=== PATIENT | female | born 1975 | race Caucasian/White ===

== ENCOUNTER 2018-10-01 09:40 | Emergency (ER) | payer BC ==
[~2018-10-01] VITALS: Ht 157.5 cm; Wt 53.2 kg
[~2018-10-01 09:40] MED LIST: BENTYL 10MG10 MG/CAP; BIRTH CONTROL; CELEXA10 MG; LEVBID0.375 MG
[2018-10-01 09:50] VITALS: TEMP 99.1
[2018-10-01 10:45] LABS: BASO # 0.1 (0.0-0.2); BASO % 0.4 % (0.0-2.0); EOS # 0.1 (0.0-0.7); EOS % 0.4 % (0-4.0); GRAN # 9.8 (1.4-6.5); HEMOGLOBIN 13.6 g/dl (12.5-16.0); LYMPH # 1.7 (1.2-3.4); LYMPH % 13.7 % (20.0-51.0); MEAN CELL VOLUME 86 fl (80.0-100.0); MEAN CORPUSCULAR HEMOGLOBIN 29 pg (27.0-31.0); MEAN CORPUSCULAR HGB CONC 34 g/dl (33.0-37.0); MEAN PLATELET VOLUME 10.5 fl (7.4-10.4); MONO # 0.9 (0.1-0.6); MONO % 7.1 % (1.7-9.3); PLATELET COUNT 357 K/mm3 (130-400); RED BLOOD COUNT 4.64 M/mm3 (4.10-5.30); REDCELL DISTRIBUTION WIDTH-CV 12.2 % (11.5-14.5)
[2018-10-01 10:53] LABS: ALBUMIN 4.5 gm/dL (3.5-5.0); BILIRUBIN,TOTAL 0.6 mg/dL (0.0-1.0); CREATININE, serum 0.77 mg/dL (0.52-1.25); POTASSIUM 4.5 mmol/L (3.4-5.0); TOTAL PROTEIN 7.8 gm/dL (6.4-8.2)
[2018-10-01 11:23] LABS: TSH w REFLEX 2.31 uIU/mL (0.465-4.680)
[2018-10-01 13:48] LABS: COLLECTION METHOD CLEAN CATCH
[2018-10-01 14:05] LABS: MUCOUS Present /lpf; PH 6 (5-8); SQUAMOUS EPITHELIAL None Seen /hpf; URINE APPEARANCE Clear; URINE BACTERIA None Seen /hpf; URINE BILIRUBIN Negative (NEGATIVE); URINE BLOOD Negative (NEGATIVE); URINE COLOR Yellow; URINE GLUCOSE Negative (NEGATIVE); URINE KETONE 2+ (NEGATIVE); URINE LEUKOCYTE ESTERASE Negative (NEGATIVE); URINE NITRATE Negative (NEGATIVE); URINE PROTEIN(semi-quant) 1+ (NEGATIVE); URINE RBC 0-2 /hpf; URINE UROBILINOGEN Negative (NEGATIVE)
[2018-10-01 15:23] VITALS: BP 126/72; PULSE 89
== END 2018-10-01 15:29 | disposition home or self-care (01) ==
LOC: COL.ER 09:40
PROVIDERS: Emergency Medicine
DX: E86.0 Dehydration (principal); R53.83 Other fatigue; R53.81 Other malaise; F41.9 Anxiety disorder, unspecified; F32.9 Major depressive disorder, single episode, unspecified; K58.9 Irritable bowel syndrome, unspecified
CPT/HCPCS: J7070

== ENCOUNTER 2018-10-16 16:36 | Outpatient (CLI) | payer BC ==
[~2018-10-16] VITALS: Ht 157.5 cm; Wt 51.3 kg
[~2018-10-16 16:36] MED LIST changes: +ATIVAN 0.50.5 MG/TAB PO; +ATIVAN 1MG T1 MG/TAB PO; +ATIVAN0.5 MG PO; +ATIVAN1 MG PO; +CELEXA10 MG PO; +CENA K20 MEQ/15 PO; +KARIVA1 TAB PO; +KLONOPIN0.5 MG PO; +LEVBID0.375 MG PO; +POTASSIUM CH2 MEQ/ML PO; +RITALIN 5MG5 MG/TAB PO; +ZOFRAN4 M1 PO
[2018-10-16 17:00] VITALS: BP 131/81; PULSE 92; TEMP 98.1
[2018-10-16 17:07] LABS: HEMATOCRIT 41.9 % (37.0-47.0); HEMOGLOBIN 14.2 g/dl (12.5-16.0); MEAN CELL VOLUME 86 fl (80.0-100.0); MEAN CORPUSCULAR HEMOGLOBIN 29 pg (27.0-31.0); MEAN CORPUSCULAR HGB CONC 34 g/dl (33.0-37.0); PLATELET COUNT 343 K/mm3 (130-400); RED BLOOD COUNT 4.89 M/mm3 (4.10-5.30); REDCELL DISTRIBUTION WIDTH-CV 12.5 % (11.5-14.5)
[2018-10-16] MEDS ORDERED: VANCOCIN H125 MG/CAP PO (18:24)
[2018-10-16] MEDS ORDERED: ZOFRAN ODT8 MG PO (18:24)
[2018-10-16] MEDS ORDERED: RITALIN 5MG5 MG/TAB PO (18:25)
[2018-10-16] MEDS ORDERED: MOBIC 7.5MG7.5 MG PO (18:26)
[2018-10-16 18:27] LABS: ALBUMIN 3.6 gm/dL (3.5-5.0); BILIRUBIN,TOTAL 0.4 mg/dL (0.0-1.0); CALCIUM 8.6 mg/dL (8.4-10.2); CREATININE, serum 0.71 mg/dL (0.52-1.25); POTASSIUM 4.1 mmol/L (3.4-5.0); TOTAL PROTEIN 6.6 gm/dL (6.4-8.2)
[2018-10-16] MEDS ORDERED: FLEXERIL5 MG PO (18:27)
[2018-10-16] MEDS ORDERED: ALBUTEROL0.83 MG/ML IH (18:28)
[2018-10-16] MEDS ORDERED: PREDNISONE20 MG PO (18:28)
[2018-10-16] MEDS ORDERED: PHENERGAN 25 TA25 MG PO (18:29)
[2018-10-16] MEDS ORDERED: FLAGYL500 MG PO (18:31)
== END 2018-10-16 19:01 | disposition home or self-care (01) ==
LOC: EUO 16:36
PROVIDERS: Family Medicine
DX: G93.3 Postviral and related fatigue syndromes (principal); K52.9 Noninfective gastroenteritis and colitis, unspecified; A04.72 Enterocolitis due to Clostridium difficile, not specified as recurrent
CPT/HCPCS: J3480

== ENCOUNTER 2018-10-19 17:05 | Outpatient (CLI) | payer BC ==
[~2018-10-19 17:05] MED LIST changes: +ALBUTEROL0.83 MG/ML IH; +FLAGYL500 MG PO; +FLEXERIL5 MG PO; +MOBIC 7.5MG7.5 MG PO; +PHENERGAN 25 TA25 MG PO; +PREDNISONE20 MG PO; +VANCOCIN H125 MG/CAP PO; +ZOFRAN ODT8 MG PO
[2018-10-19 18:00] VITALS: BP 121/77; PULSE 89; TEMP 98.5
[2018-10-19] MEDS ORDERED: ZANTAC 150MG T150 MG PO (19:27)
[2018-10-19] MEDS ORDERED: ATIVAN 0.50.5 MG/TAB PO (19:29)
[2018-10-19] MEDS ORDERED: MULTI VITAMINS1 TAB PO (19:30)
[2018-10-19] MEDS ORDERED: PROBIOTIC FORMU1 CAP PO (19:31)
== END 2018-10-19 20:05 | disposition home or self-care (01) ==
LOC: EUO 17:05
DX: E86.0 Dehydration (principal)
CPT/HCPCS: J3480

== ENCOUNTER → 2018-11-23 | Outpatient (CLI) | payer BC ==
[~2018-11-23] MED LIST changes: +MULTI VITAMINS1 TAB PO; +PROBIOTIC FORMU1 CAP PO; +ZANTAC 150MG T150 MG PO
== END ==
LOC: BHSO 15:58
DX: F90.0 Attention-deficit hyperactivity disorder, predominantly inattentive type (principal)
CPT/HCPCS: G0463

== ENCOUNTER → 2019-01-25 | Outpatient (CLI) | payer BC | LOC: BHSO 15:59 | DX: F41.1 Generalized anxiety disorder (principal) | CPT/HCPCS: G0463 ==

== ENCOUNTER → 2019-04-22 | Outpatient (CLI) | payer BC | LOC: BHSO 16:03 | DX: F41.1 Generalized anxiety disorder (principal) | CPT/HCPCS: G0463 ==

== ENCOUNTER → 2019-07-23 | Outpatient (CLI) | payer BC | LOC: BHSO 16:09 | DX: F90.0 Attention-deficit hyperactivity disorder, predominantly inattentive type (principal) | CPT/HCPCS: G0463 ==

== ENCOUNTER → 2020-04-23 | Outpatient (CLI) | payer BC | LOC: BHSO 15:09 | DX: F41.1 Generalized anxiety disorder (principal) | CPT/HCPCS: G0463 ==